=== PATIENT | male | born 1955 | race Caucasian/White ===

== ENCOUNTER 2017-02-05 20:07 | Emergency (ER) | payer OTHER ==
[~2017-02-05] VITALS: Ht 172.7 cm; Wt 83.3 kg
[~2017-02-05 20:07] MED LIST: ALPR0.25; METO25TA91; TRAZ150T18; VILA10TA
[2017-02-05] MEDS ORDERED: ASPIRIN 81 MG TABLET CHEW PO ONE (20:30)
[2017-02-05] MEDS ORDERED: SODIUM CHLORIDE 0.9% 1,000ML IVBOLUS ONE (20:30)
[2017-02-05] MEDS ORDERED: ASPIRIN 81 MG TABLET CHEW ONE (20:40)
[2017-02-05] MEDS ORDERED: DILTIAZEM 5 MG/ML, 5ML ONE (20:40)
[2017-02-05 20:54] LABS: HEMOGLOBIN 16.5 g/dL (13.7-18.0)
[2017-02-05] MEDS ORDERED: DILTIAZEM 5 MG/ML, 5ML IV ONE (21:00)
[2017-02-05] MEDS ORDERED: LEVO25TA4 PO (21:03)
[2017-02-05] MEDS ORDERED: BUPR-173 PO (21:03)
[2017-02-05] MEDS ORDERED: TRINTILLEX PO (21:03)
[2017-02-05] MEDS ORDERED: DICL50TA2 PO (21:03)
[2017-02-05] MEDS ORDERED: CETI-237 PO (21:03)
[2017-02-05 21:05] LABS: ASPARTATE AMINO TRANSFERASE 22 U/L (15-37); BLOOD UREA NITROGEN 15 mg/dL (7-18)
[2017-02-05 21:06] LABS: IS PT STATUS REG ER OR PRE ER? YES
[2017-02-05] MEDS ORDERED: DILTIAZEM 120 MG CAP.ER.24H PO ONE (22:00)
[2017-02-05 22:37] VITALS: BP 120/77
== END 2017-02-05 22:46 | disposition home or self-care (01) ==
LOC: ED 22:40
DX: I48.0 Paroxysmal atrial fibrillation (principal); E87.6 Hypokalemia; I49.3 Ventricular premature depolarization; Z79.82 Long term (current) use of aspirin
CPT/HCPCS: 36415; 71010; 80053; 84484; 85025; 93005; 96361; 96374; 99291; J7030

== ENCOUNTER 2017-07-26 12:53 | Emergency (ER) | payer OTHER ==
[~2017-07-26] VITALS: Ht 172.7 cm; Wt 83.2 kg
[~2017-07-26 12:53] MED LIST changes: +BUPR-173 PO; +CETI-237 PO; +DICL50TA2 PO; +LEVO25TA4 PO; +TRINTILLEX PO
[2017-07-26 13:06] VITALS: BP 143/82
== END 2017-07-26 14:20 | disposition left against medical advice (07) ==
LOC: ED 14:14
DX: R11.10 Vomiting, unspecified (principal); Z53.21 Procedure and treatment not carried out due to patient leaving prior to being seen by health care provider

== ENCOUNTER 2019-01-16 21:42 | Inpatient (IN) | payer OTHER ==
[~2019-01-16] VITALS: Ht 172.7 cm; Wt 89.7 kg
[~2019-01-16 21:42] MED LIST changes: -ALPR0.25; +ALPR0.25 PO; -METO25TA91; +METO25TA91 PO; -TRAZ150T18; +TRAZ150T18 PO; -VILA10TA; +VILA10TA PO
[2019-01-16 22:14] LABS: BASOPHILS # (AUTO) 0.05 x10^3/uL (0-0.1); BASOPHILS % (AUTO) 1 % (0-1); EOSINOPHILS # (AUTO) 0.17 x10^3/uL (0-0.4); EOSINOPHILS % (AUTO) 3 % (1-7); LYMPHOCYTES # (AUTO) 2.01 x10^3/uL (1-3.4); LYMPHOCYTES % (AUTO) 41 % (22-44); MD NO; MEAN CORPUSCULAR HEMOGLOBIN 30.8 pg (27.5-34.5); MEAN CORPUSCULAR HGB CONC 34.5 g/dL (33.2-36.2); MEAN CORPUSCULAR VOLUME 89.3 fL (81-97); MEAN PLATELET VOLUME 8.9 fL (7.4-10.4); MONOCYTES # (AUTO) 0.31 x10^3/uL (0.2-0.8); MONOCYTES % (AUTO) 6 % (2-9); NEUTROPHILS # (AUTO) 2.39 x10^3/uL (1.8-6.8); NEUTROPHILS % (AUTO) 49 % (42-75); PLATELET COUNT 184 x10^3/uL (130-400); RED BLOOD COUNT 4.94 x10^6/uL (4.38-5.82); RED CELL DISTRIBUTION WIDTH 12.9 % (9.4-14.8)
[2019-01-16 22:28] LABS: ALANINE AMINOTRANSFERASE 50 U/L (12-78); ALBUMIN 3.9 g/dL (3.4-5.0); ANION GAP 8 mmol/L (5-15); CALCIUM 8.2 mg/dL (8.5-10.1); CHLORIDE 108 mmol/L (98-107); CREATININE 0.95 mg/dL (0.7-1.3)
[2019-01-16 22:33] LABS: ALKALINE PHOSPHATASE 175 U/L (45-117); BILIRUBIN,TOTAL 0.5 mg/dL (0.2-1.0); TOTAL PROTEIN 6.7 g/dL (6.4-8.2); TROPONIN I < 0.015 ng/mL (0.000-0.045)
--- NOTE | 2019-01-16 22:43 | NUR ---
PT'S LABS AND IMAGING BACK. WAITING FOR PROVIDER TO SEE PT
--- NOTE | 2019-01-16 23:59 | NUR ---
DR WELLS AT BEDSIDE UPDATING PT ON POC
[2019-01-17] MEDS ORDERED: ONDANSETRON ODT 4 MG PO PRN (00:30)
[2019-01-17] MEDS ORDERED: BISACODYL 10 MG SUPP PR PRN (00:30)
[2019-01-17] MEDS ORDERED: POLYETHYLENE GLYCOL 17 GM PACKET PO PRN (00:30)
[2019-01-17] MEDS ORDERED: TRAZODONE HCL 150 MG SCH (00:30)
[2019-01-17] MEDS ORDERED: morphine SULFATE 10 MG/ML, 1ML IVPush PRN (00:30)
[2019-01-17] MEDS ORDERED: ACETAMINOPHEN 325 MG TABLET PO PRN (00:30)
[2019-01-17] MEDS ORDERED: NITROGLYCERIN 0.4 MG BOTTLE (25 TABS) SL PRN (00:30)
--- NOTE | 2019-01-17 00:57 | NUR ---
PT PLACED ON HOSPITAL BED FOR COMFORT
--- NOTE | 2019-01-17 01:03 | NUR ---
REPORT REC. CARE OF PT ASSUMED AT THIS TIME.
[2019-01-17] MEDS: HEPARIN 5,000 UNITS/ML, 1ML SQ SCH ×2 (01:12→08:30)
--- NOTE | 2019-01-17 03:08 | NUR ---
REPORT FROM JESSICA PILLAI. PT AMBULATED TO BATHROOM. VSS. PT HAS NO NEEDS AT THIS TIME. PT DENIES PAIN. CALL LIGHT IN REACH
--- NOTE | 2019-01-17 04:00 | NUR ---
PT RESTING. EVEN RISE AND FALL OF CHEST OBSERVED. CALL LIGHT IN REACH
--- NOTE | 2019-01-17 05:30 | NUR ---
LAB AT BEDSIDE. VSS.PT WOOD NO NEEDS AT THIS TIME. CALL LIGHT IN REACH
[2019-01-17 06:02] LABS: TROPONIN I < 0.015 ng/mL (0.000-0.045)
--- NOTE | 2019-01-17 07:00 | NUR ---
Report from Reji Jay RN.
--- NOTE | 2019-01-17 07:43 | NUR ---
Report to Admit RN.
[2019-01-17 08:37] VITALS: BP 156/81
[2019-01-17] MEDS ORDERED: REGADENOSON 0.4 MG/5 ML SYRINGE ONE (08:37)
[2019-01-17] MEDS ORDERED: LEVOTHYROXINE 88 MCG TABLET PO SCH (09:00)
[2019-01-17] MEDS ORDERED: VILAZODONE HYDROCHLORIDE 10 MG PO SCH (09:00)
[2019-01-17] MEDS ORDERED: METOPROLOL SUCCINATE 25 MG TAB.ER.24H PO SCH (09:00)
[2019-01-17] MEDS ORDERED: SENNA/DOCUSATE TABLET PO SCH (09:00)
[2019-01-17] MEDS ORDERED: BUPROPION SR 100 MG TABLET PO SCH (09:00)
[2019-01-17] MEDS ORDERED: LEVOTHYROXINE 25 MCG TABLET PO SCH (09:00)
[2019-01-17] MEDS ORDERED: SODIUM CHLORIDE FLUSH 10ML SYR IVF SCH (09:00)
[2019-01-17] MEDS ORDERED: DICLOFENAC 50 MG TABLET.DR PO SCH (09:00)
[2019-01-17] MEDS ORDERED: ASPIRIN 81 MG TABLET CHEW PO SCH (09:00)
[2019-01-17] MEDS ORDERED: CETIRIZINE 10 MG TABLET PO SCH (09:30)
[2019-01-17] MEDS ORDERED: TRAZODONE 150MG TABLET PO SCH (09:30)
[2019-01-17 11:32] LABS: TROPONIN I < 0.015 ng/mL (0.000-0.045)
== END 2019-01-17 16:14 | disposition home or self-care (01) | DRG 303 ==
LOC: ED 23:53 → EDIP 01-17 00:06 → 5SO 01-17 08:12
PROVIDERS: ADMIT Family Medicine; ATTEND Family Medicine
DX: I25.9 Chronic ischemic heart disease, unspecified (principal); I20.1 Angina pectoris with documented spasm; I48.91 Unspecified atrial fibrillation; E03.9 Hypothyroidism, unspecified; K21.9 Gastro-esophageal reflux disease without esophagitis; Z80.0 Family history of malignant neoplasm of digestive organs
CPT/HCPCS: 36415; 71046; 78452; 80053; 84484; 85025; 93005; 93017; 99285; G0378; J1644; J2785; A9502; C9898